=== PATIENT | female | born 1965 | race Caucasian/White ===

== ENCOUNTER → 2019-05-14 | Outpatient (CLI) | payer OTHER ==
[~2019-05-14] MED LIST: ASPIR 8181 MG PO; CARVEDILOL12.5 MG PO; FLEXERIL PO; HYDROCODON-ACE1 EAC7 PO; LIPITOR40 MG PO; NEURONTIN600 MG PO; SYNTHROID200 MCG PO; TRAMADOL 50 MG50 MG PO; WELLBUTRIN SR100 MG PO; XANAX 0.25 MG0.25 MG PO
== END ==
LOC: M.PC 05:08
DX: M46.06 Spinal enthesopathy, lumbar region (principal); Z98.1 Arthrodesis status

== ENCOUNTER → 2019-05-21 | Outpatient (CLI) | payer OTHER | END | disposition home or self-care (01) | LOC: M.PC 05:05 | DX: M54.16 Radiculopathy, lumbar region (principal); G89.29 Other chronic pain; Z88.2 Allergy status to sulfonamides; Z79.82 Long term (current) use of aspirin; Z79.899 Other long term (current) drug therapy ==

== ENCOUNTER → 2019-09-16 | Outpatient (CLI) | payer OTHER | LOC: M.RAD 15:52 | DX: Z12.31 Encounter for screening mammogram for malignant neoplasm of breast (principal); Z13.820 Encounter for screening for osteoporosis; Z78.0 Asymptomatic menopausal state ==

== ENCOUNTER → 2019-09-19 | Outpatient (CLI) | payer OTHER | LOC: M.RAD 09-18 13:32 | DX: R92.2 Inconclusive mammogram (principal) ==